=== PATIENT | female | born 1945 | race Caucasian/White ===

== ENCOUNTER 2018-02-18 13:20 | Emergency (ER) | payer OTHER ==
--- NOTE | 2018-02-18 13:53 | EDM.PDOC ---
ED HPI GENERAL MEDICAL PROBLEM - General Chief Complaint: Medication Administration Stated Complaint: UNK ISSUES Time Seen by Provider: 02/18/18 13:32 Source of Information: Reports: Patient History Limitations: Reports: No Limitations - History of Present Illness INITIAL COMMENTS - FREE TEXT/NARRATIVE: HISTORY AND PHYSICAL: History of present illness: Patient is a 72-year-old female who is brought to the emergency room by her with request for medication refill. Patient and the recently moved here from [place] and would like her to be re-started on some of her medications that she was taken off of while living in [facility]. The states that he has not been able to get into a primary care provider to get these medications refilled/evaluated. reports that "she mauricio some times... and I just want to give her something to help". Patient reports that she cries due to her moods; but has no pain, no thoughts of self harm, and has no systemic complaints. Patient has a past medical history of Alzheimer's disease, Parkinson's disease and depression. She currently offers no complaints or concerns. Review of systems: As per history of present illness and below otherwise all systems reviewed and negative. Past medical history: As per history of present illness and as reviewed below otherwise noncontributory. Surgical history: As per history of present illness and as reviewed below otherwise noncontributory. Social history: No reported history of drug or alcohol abuse. Family history: As per history of present illness and as reviewed below otherwise noncontributory. Physical exam: General: Well-developed and well-nourished 72-year-old female. Alert and oriented. Nontoxic appearing and in no acute distress. HEENT: Atraumatic, normocephalic, pupils equal and reactive bilaterally, negative for conjunctival pallor or scleral icterus, mucous membranes moist, throat clear, neck supple, nontender, trachea midline. No drooling or trismus noted. No meningeal signs Lungs: Clear to auscultation, breath sounds equal bilaterally, chest nontender. Heart: S1S2, regular rate and rhythm without overt murmur Abdomen: Soft, nondistended, nontender. Negative for masses or hepatosplenomegaly. Negative for costovertebral tenderness. Pelvis: Stable nontender. Genitourinary: Deferred. Rectal: Deferred. Skin: Intact, warm, dry. No lesions or rashes noted. Extremities: Atraumatic, negative for cords or calf pain. Neurovascular unremarkable. Neuro: Awake, alert, oriented. Cranial nerves II through XII unremarkable. Cerebellum unremarkable. Motor and sensory unremarkable throughout. Exam nonfocal. Notes: Vital signs are stable. Patient and state they do not want any lab work or further evaluation other than for someone to look at all her medications and see "which ones she can add". Nursing staff called the clinic to set up an appointment for the patient. I did explain in great detail to the and patient that unable to add more of her depression medications at this time as she does need to establish care with a primary care provider. He voices understanding and is agreeable to plan of care. Denies any further questions or concerns at this time Diagnostics: Declines Therapeutics: Declines Prescription: None Impression: Encounter for medication refill Plan: 1. Please follow-up with the primary care provider appointment that has been set up for you. Return to the ED as needed and as discussed. Definitive disposition and diagnosis as appropriate pending reevaluation and review of above. - Related Data Allergies Allergy/AdvReac Type Severity Reaction Status Date / Time Sulfa (Sulfonamide Allergy Other Verified 02/18/18 13:39 Antibiotics) Home Meds: Home Meds Albuterol Sulfate [Proair Respiclick] 1 puff PRN 02/18/18 [History] Potassium Citrate [Potassium Citrate ER] 10 meq DAILY 02/18/18 [History] QUEtiapine [SEROquel] 50 mg BEDTIME 02/18/18 [History] atorvaSTATin Calcium [Atorvastatin Calcium] 20 mg DAILY 02/18/18 [History] hydroCHLOROthiazide [Hydrochlorothiazide] 25 mg DAILY 02/18/18 [History] ED ROS GENERAL - Review of Systems Review Of Systems: ROS reveals no pertinent complaints other than HPI. ED EXAM, GENERAL - Physical Exam Exam: See Below (See dictation) Course - Vital Signs Last Recorded V/S: Last Vital Signs Temp 97.8 F 02/18/18 13:30 Pulse 59 L 02/18/18 13:30 Resp 18 02/18/18 13:30 BP 140/68 02/18/18 13:30 Pulse Ox 99 02/18/18 13:30 Departure - Departure Time of Disposition: 14:39 Disposition: Home, Self-Care 01 Clinical Impression: Encounter for medication adjustment - Discharge Information Instructions: Medicine Refill at the Emergency Department Referrals: PCP,Not In Area [Primary Care Provider] - Ander Victor MD [Physician] - (ER Follow Up appointment at 2:30 February 22 March 03 at 9 am to establish primary care. ) Forms: ED Department Discharge Additional Instructions: The following information is given to patients seen in the emergency department who are being discharged to home. This information is to outline your options for follow-up care. We provide all patients seen in our emergency department with a follow-up referral. The need for follow-up, as well as the timing and circumstances, are variable depending upon the specifics of your emergency department visit. If you don't have a primary care physician on staff, we will provide you with a referral. We always advise you to contact your personal physician following an emergency department visit to inform them of the circumstance of the visit and for follow-up with them and/or the need for any referrals to a consulting specialist. The emergency department will also refer you to a specialist when appropriate. This referral assures that you have the opportunity for follow-up care with a specialist. All of these measure are taken in an effort to provide you with optimal care, which includes your follow-up. Under all circumstances we always encourage you to contact your private physician who remains a resource for coordinating your care. When calling for follow-up care, please make the office aware that this follow-up is from your recent emergency room visit. If for any reason you are refused follow-up, please contact the [facility] Emergency Department at and asked to speak to the emergency department charge nurse. [facility] [address] [place] [address] [id number] [address] [address] Please follow-up with the primary care provider appointment that has been set up for you. Return to the ED as needed and as discussed.
== END 2018-02-18 15:40 | disposition home or self-care (01) ==
LOC: MW.ED 13:20
DX: Z76.0 Encounter for issue of repeat prescription (principal); G30.9 Alzheimer's disease, unspecified; F02.80 Dementia in other diseases classified elsewhere, unspecified severity, without behavioral disturbance, psychotic disturbance, mood disturbance, and anxiety; G20 Parkinson's disease; Z88.2 Allergy status to sulfonamides; Z79.899 Other long term (current) drug therapy
CPT/HCPCS: 99281

== ENCOUNTER 2018-02-19 16:50 | Emergency (ER) | payer MEDICAID, OTHER ==
--- NOTE | 2018-02-19 17:03 | EDM.PDOC ---
ED HPI GENERAL MEDICAL PROBLEM - General Chief Complaint: General Stated Complaint: PT NEEDS HER MEDS Time Seen by Provider: 02/19/18 17:01 Source of Information: Reports: Patient History Limitations: Reports: No Limitations - History of Present Illness INITIAL COMMENTS - FREE TEXT/NARRATIVE: HISTORY AND PHYSICAL: History of present illness: Patient is a 72-year-old female who presents to the emergency room with her with concerns of anxiety. Patient was seen here in the ER yesterday with request to have her depression and anxiety medications adjusted. She recently moved up to [place] from [place]. She recently had a hospital stay while in [place] and had several medications discontinued while she was started on Seroquel. The has a list of medications with him that he would like her to be restarted on. During yesterday's visit a follow-up appointment for her to be seen for her concerns and to establish care was made for a couple days from now. The reports that today she had a "anxiety attack" and had given her a tablet of a roommate anxiety medication, which appeared to help. The states, "I just need something to help calm her down". She denies any fever, chills, chest pain, shortness of breath or cough. Denies any abdominal pain, nausea, vomiting, diarrhea or constipation. Denies any thoughts of self-harm or harming others. Parkinson's disease, anxiety and depression. Review of systems: As per history of present illness and below otherwise all systems reviewed and negative. Past medical history: As per history of present illness and as reviewed below otherwise noncontributory. Surgical history: As per history of present illness and as reviewed below otherwise noncontributory. Social history: No reported history of drug or alcohol abuse. Family history: As per history of present illness and as reviewed below otherwise noncontributory. Physical exam: General: Well-developed and well-nourished 72-year-old female. Alert and oriented. Nontoxic appearing and in no acute distress. Patient is appropriately interacting with staff. Smiling and does not appear emotionally stressed at this time (no crying, fidgeting, etc...) HEENT: Atraumatic, normocephalic, pupils equal and reactive bilaterally, negative for conjunctival pallor or scleral icterus, mucous membranes moist, throat clear, neck supple, nontender, trachea midline. No drooling or trismus noted. No meningeal signs Lungs: Clear to auscultation, breath sounds equal bilaterally, chest nontender. Heart: S1S2, regular rate and rhythm without overt murmur Abdomen: Soft, nondistended, nontender. Negative for masses. Negative for costovertebral tenderness. Pelvis: Stable nontender. Genitourinary: Deferred. Rectal: Deferred. Skin: Intact, warm, dry. No lesions or rashes noted. Extremities: Atraumatic, negative for cords or calf pain. Neurovascular unremarkable. Neuro: Awake, alert, oriented. Cranial nerves II through XII unremarkable. Cerebellum unremarkable. Motor and sensory unremarkable throughout. Exam nonfocal. Notes: I did have a long thorough conversation with patient and about establishing care with a primary care provider and following up with a mental health provider for further evaluation and management of her long-term medications. She states she has used a friends medication with good relief. Unsure of name of medication; believes its called "Mentool". I will give her a limited amount of Ativan until she is able to make her follow-up appointment with Dr Dale this week. She voices understanding and is agreeable to plan of care. Denies any further questions or concerns at this time. Diagnostics: None Therapeutics: None Prescription: Ativan 0.5 BID PRN (Disp #10) Impression: Anxiety Plan: 1. Please take your medication as directed. Do not drive while taking this medication as it can cause drowsiness. 2. You need to keep the appointments that were made for you to establish care with a primary care provider. Your concerns about your medication will be addressed at that time. We do not adjust depression/anxiety medications through the emergency room as you do need a primary care physician to follow through on these. 3. Return to the ED as needed and as discussed. Definitive disposition and diagnosis as appropriate pending reevaluation and review of above. Duration: Chronic - Related Data Allergies Allergy/AdvReac Type Severity Reaction Status Date / Time Sulfa (Sulfonamide Allergy Other Verified 02/19/18 17:06 Antibiotics) Home Meds: Home Meds Albuterol Sulfate [Proair Respiclick] 1 puff INH ASDIRECTED PRN 02/18/18 [ History] Potassium Citrate [Potassium Citrate ER] 10 meq PO DAILY 02/18/18 [History] QUEtiapine [SEROquel] 50 mg PO BEDTIME 02/18/18 [History] atorvaSTATin Calcium [Atorvastatin Calcium] 20 mg PO DAILY 02/18/18 [History] hydroCHLOROthiazide [Hydrochlorothiazide] 25 mg PO DAILY 02/18/18 [History] Past Medical History Cardiovascular History: Reports: High Cholesterol, Hypertension Respiratory History: Reports: COPD Neurological History: Reports: Alzheimers Disease, Parkinson's Psychiatric History: Reports: Alzheimers Disease, Bipolar, Schizophrenia Other Oncologic History: Lymphangioma - Past Surgical History HEENT Surgical History: Reports: Tonsillectomy GI Surgical History: Reports: Appendectomy Female Surgical History: Reports: Hysterectomy Musculoskeletal Surgical History: Reports: Shoulder Replacement Social & Family History - Family History Family Medical History: Noncontributory - Caffeine Use Caffeine Use: Reports: None ED ROS GENERAL - Review of Systems Review Of Systems: ROS reveals no pertinent complaints other than HPI. ED EXAM, GENERAL - Physical Exam Exam: See Below (See dictation) Course - Vital Signs Last Recorded V/S: Last Vital Signs Temp 97.9 F 02/19/18 17:02 Pulse 66 02/19/18 17:02 Resp 20 02/19/18 17:02 BP 122/84 02/19/18 17:02 Pulse Ox 98 02/19/18 17:02 Departure - Departure Time of Disposition: 17:18 Disposition: Home, Self-Care 01 Clinical Impression: Anxiety - Discharge Information Instructions: Generalized Anxiety Disorder, Adult Referrals: PCP,None [Primary Care Provider] - Forms: ED Department Discharge Additional Instructions: The following information is given to patients seen in the emergency department who are being discharged to home. This information is to outline your options for follow-up care. We provide all patients seen in our emergency department with a follow-up referral. The need for follow-up, as well as the timing and circumstances, are variable depending upon the specifics of your emergency department visit. If you don't have a primary care physician on staff, we will provide you with a referral. We always advise you to contact your personal physician following an emergency department visit to inform them of the circumstance of the visit and for follow-up with them and/or the need for any referrals to a consulting specialist. The emergency department will also refer you to a specialist when appropriate. This referral assures that you have the opportunity for follow-up care with a specialist. All of these measure are taken in an effort to provide you with optimal care, which includes your follow-up. Under all circumstances we always encourage you to contact your private physician who remains a resource for coordinating your care. When calling for follow-up care, please make the office aware that this follow-up is from your recent emergency room visit. If for any reason you are refused follow-up, please contact the [facility] Emergency Department at and asked to speak to the emergency department charge nurse. [facility] [place] [id number] 1. Please take your medication as directed. Do not drive while taking this medication as it can cause drowsiness. 2. You need to keep the appointments that were made for for later this week. You need to establish care with a primary care provider to address your concerns about your anxiety and depression medication. We do not adjust depression/anxiety medications through the emergency room; as these need to be monitored and adjusted by your primary care physician. 3. Return to the ED as needed and as discussed.
[2018-02-19] MEDS ORDERED: LORazepam 0.5 MG Tab PO ONE (17:33)
== END 2018-02-19 17:52 | disposition home or self-care (01) ==
LOC: MW.ED 16:50
DX: F41.9 Anxiety disorder, unspecified (principal); I10 Essential (primary) hypertension; Z88.2 Allergy status to sulfonamides; Z79.899 Other long term (current) drug therapy
CPT/HCPCS: 99283; A9270